=== PATIENT | male | born 1995 | race Caucasian/White ===

== ENCOUNTER 2021-09-08 19:35 | Emergency (ER) | payer BC ==
[~2021-09-08] VITALS: Ht 188 cm; Wt 158.8 kg
--- NOTE | 2021-09-08 20:02 | NUR ---
TO ER BED 11. BIBSELF C/O LACERATION TO INDEX FINGER R HAND FROM GLASS PLATE, INJURY OCCURED AN HOUR AGO. NON BLEEDING. UP TO DATE WITH TETANUS SHOT. AWAITING MD SHELLEY
--- NOTE | 2021-09-08 20:06 | NUR ---
LIQUOR RECTIFIER AT BEDSIDE FOR WOUND CLEANING
[2021-09-08 21:25] VITALS: BP 160/86
== END 2021-09-08 21:25 | disposition home or self-care (01) ==
LOC: ER 19:40
DX: S61.210A Laceration without foreign body of right index finger without damage to nail, initial encounter (principal); W25.XXXA Contact with sharp glass, initial encounter; Y93.89 Activity, other specified; Y92.89 Other specified places as the place of occurrence of the external cause; Y99.8 Other external cause status